=== PATIENT | female | born 1990 | race Two or more races ===

== ENCOUNTER 2019-05-23 13:03 | Emergency (ER) | payer BC ==
[~2019-05-23] VITALS: Ht 165.1 cm; Wt 59.0 kg
[2019-05-23] MEDS ORDERED: LIDOCAINE VISCOUS 2% UD 15 ML UDC ONE (14:25)
--- NOTE | 2019-05-23 14:28 | NUR ---
INSERTED 1 GTT OF VISCOUS LIDO IN LEFT EAR, PER Andrew SANCHEZ PA-C
[2019-05-23] MEDS ORDERED: LIDOCAINE VISCOUS 2% UD 15 ML UDC MM ONE (14:30)
[2019-05-23 15:29] VITALS: BP 117/78
== END 2019-05-23 15:10 | disposition home or self-care (01) ==
LOC: ER 13:06
DX: T16.2XXA Foreign body in left ear, initial encounter (principal); X58.XXXA Exposure to other specified factors, initial encounter; Y93.89 Activity, other specified; Y92.89 Other specified places as the place of occurrence of the external cause; Y99.8 Other external cause status